=== PATIENT | female | born 1985 | race Caucasian/White ===

== ENCOUNTER 2018-09-29 05:54 | Inpatient (IN) ==
[~2018-09-29 05:54] MED LIST: CeFAZolin Premix DUPLEX 2,000 MG/50 ML BAG IVPB ONE; Famotidine 20 MG/2 ML VIAL IVP PRN; Metoclopramide 10 MG/2 ML VIAL IVP PRN; Naloxone 0.4 MG/ML INJ IVP PRN; Ringers Solution, Lactated 1,000 ML ONE
[2018-09-29] MEDS ORDERED: Ringers Solution, Lactated 1,000 ML IVC SCH (06:00)
[2018-09-29 06:35] LABS: Amphetamine Screen,Urine Negative ng/mL (Cutoff=1000); Barbiturate Screen,Urine Negative ng/mL (Cutoff=200)
[2018-09-29 06:37] LABS: Benzodiazepines Screen,Urine Negative ng/mL (Cutoff=300); Cannabinoid Screen,Urine Negative ng/mL (Cutoff = 50); Cocaine Screen,Urine Negative ng/mL (Cutoff= 300); Opiate Screen,Urine Negative ng/mL (Cutoff=300); Phencyclidine Screen,Urine Negative ng/mL (Cutoff=25)
[2018-09-29 06:39] LABS: Basophils # 0.1 K/mcL (0.0-0.2); Basophils % 0.4 %; Eosinophils # 0.1 K/mcL (0.0-0.6); Eosinophils % 0.6 %; Hematocrit 36.8 % (35.3-44.9); Hemoglobin 11.9 g/dL (11.5-15.4); Immature Granulocytes % 1.2 % (0-4); Lymphocytes # 1.7 K/mcL (0.6-4.6); Lymphocytes % 13.4 %; Mean Corpuscular HGB Conc 32.3 g/dL (31.6-35.5); Mean Corpuscular Hemoglobin 30.4 pg (28.0-33.3); Mean Corpuscular Volume 93.9 fL (83.0-100.0); Mean Platelet Volume 9.7 fL (9.4-12.4); Monocytes # 0.8 K/mcL (0.0-1.3); Monocytes % 5.9 %; Neutrophils # 10.2 K/mcL (1.6-8.9); Platelet Count 237 K/mcL (140-400); Red Blood Count 3.92 M/mcL (3.82-4.97); Red Cell Distribution Width 14.6 % (11.5-14.5); Segmented Neutrophils % 78.5 %
[2018-09-29] MEDS ORDERED: *HR* OxyCODONE/APAP 5/325 TABLET PO PRN (06:40)
[2018-09-29] MEDS ORDERED: Ibuprofen 400 MG TABLET PO PRN (06:40)
[2018-09-29] MEDS ORDERED: Ondansetron 4 MG/2 ML VIAL IVP PRN ×2 (06:40→10:41)
--- NOTE | 2018-09-29 06:41 | OB/GYN History & Physical ---
Date of Encounter: 09/29/18 Time of Encounter: 06:39 Assessment and Plan (1) 37 weeks gestation of Current visit: Yes Status: Acute (2) Refused attempt at vaginal after previous section Current visit: Yes Status: Acute History of Present Illness Chief complaint: justine godinez HPI: Ms. Medrano is a 33 year old female who presented to labor and delivery with spontaneous rupture membranes. Patient scheduled repeat section. Patient is doing well. Having no complaints of any kind today. Feeling well. Baby is very active. She has no drug allergies. She is currently on vitamins. She has no chronic medical conditions. Surgical history is significant for 2 previous sections and tonsillectomy. She has no history of abnormal Pap smears, STDs or pelvic infections. Socially she denies tobacco, alcohol, illicit drug use. Family history significant for lupus, kidney disease, heart disease and diabetes. Past Med Surg Social Fam HX - Past Medical History Medical history: no medical history Psychiatric history: no psych history - Past Surgical History Surgical History: Additional surgical history: c section x2 - Social History Smoking Status: Never smoker Smokeless Tobacco Status: No Alcohol use: none Drug use: none Obstetrical History - Pregnancies : 4 Para: 2 Term: 2 Livin Medications and Allergies Vitamin Tablet 1 tab PO DAILY 09/29/18 [History] Allergy/AdvReac Type Severity Reaction Status Date / Time No Known Allergies Allergy Verified 09/29/18 06:02 Review of System OB All systems PM: reviewed and no additional remarkable complaints except as stated Exam - Constitutional Constitutional: well developed, well nourished, no acute distress, average body habitus - HEENT HEENT: EOMI, PERRL, Normocephaly - Neck Neck exam: normal inspection - Lungs Respiratory exam: CTAB - Cardiovascular Cardiovascular exam: RRR - Abdomen Abdomen: Present: bowel sounds normal, gravid, non tender - Extremities Extremities exam: full ROM - Vagina Vagina: Present: normal moisture - Cervix Cervix: Present: absent Results All other labs normal.
--- NOTE | 2018-09-29 06:45 | Anesthesia Evaluation PreOp ---
Date of Encounter: 09/29/18 Time of Encounter: 06:45 - Past History Planned Operation: Repeat Cardiac History: Denies any Significant Hx Pulmonary History: Denies Any Significant HX ELECTROLYSIS ENGINEER History: Denies Any Significant HX Other Medical History: Denies Any Significant HX Anesthesia History: No Prior Anesthetic Complications, Past Anesthesia (C- Section) : Yes (37weeks 2days ) Alcohol Use: none Drug use: none Medications and Allergies Vitamin Tablet 1 tab PO DAILY 09/29/18 [History] Allergy/AdvReac Type Severity Reaction Status Date / Time No Known Allergies Allergy Verified 09/29/18 06:02 - Meds/Allergy Pre-op Review Medications Reviewed: Yes Allergies Reviewed: Yes Beta Blockers on Current Med List: No Anesthesia Results - Labs 09/29/18 06:00 Laboratory Tests 09/29/18 06:00 Hgb 11.9 Hct 36.8 Plt Count 237 Anesthesia Exam O2 Sat Height 1.63 m Weight 93.1 kg Height: 5'4 Weight: 93 kg NPO (# of Hours): MN Pain Scale: 0 - HEENT Pupil (Motor): Pupils equal, EOMI Mallampati: II Teeth: Normal Oral Opening: Greater than 3 - ELECTROLYSIS ENGINEER LOC: Oriented ELECTROLYSIS ENGINEER Motor: Normal RUE, Normal LUE, Normal RLE, Normal LLE, Normal Face ELECTROLYSIS ENGINEER Sensory: Normal: RUE, LUE, RLE, LLE, Face - Cardiac Rhythm: Regular Murmur: None JVD: No Carotid Bruit: No - Pulmonary Breath Sounds: bilateral Clear Respiratory Effort: Symmetrical Anesthesia Assess/Plan ASA Score: 2 Level of consciousness: Cooperative, Oriented Anesthetic Plan: Spinal Autologous Blood: No Monitoring Plan: Standard Monitors Recovery Plan: PACU (Discussed SAB, possible GA, agrees to proceed)
[2018-09-29] MEDS ORDERED: *HR* Morphine Sulfate/PF 10 MG/10 ML AMPUL ONE (06:51)
[2018-09-29] MEDS ORDERED: *HR* FentaNYL (PF) 100 MCG/2 ML VIAL ONE (06:51)
[2018-09-29] MEDS ORDERED: *HR* Phenylephrine 10 MG/ML VIAL ONE (06:52)
[2018-09-29] MEDS ORDERED: Ondansetron 4 MG/2 ML VIAL ONE (07:31)
--- NOTE | 2018-09-29 07:42 | Anesthesia Procedures ---
Date of Encounter: 09/29/18 Time of Encounter: 06:40 Procedures: Anesthesia - Epidural/Spinal Patient ID/Chart reviewed: Yes Patient examined: Yes OB Eval: Gestational age: 37 weeks OB Eval: : 5 OB Eval: Hx Para: 2 OB Eval: Contractions: Non-stressed pattern Consent Obtained: Yes Supplemental Oxygen: None/Room Air Site Prep: Aseptic Technique, Sterile prep and drape Patient position: upright Local Anesthetic: Lidocaine 1% Interspace Used: L4-L5 Loss of Resistance (CYRIL): No Blood: No CSF: Yes Paresthesia: No Spinal Needle Gauge: 24 Spinal Dose: 12 mg isobaric marcaine Procedure: Patient sitting, midline L4-5 Tolerated procedure well
[2018-09-29] MEDS ORDERED: Oxytocin 20 units/ LR 1000 mL 20 UNIT/1,000 ML BAG IVC ONE (08:47)
--- NOTE | 2018-09-29 09:07 | OB/GYN Procedure Note ---
Section - Date of procedure: 09/29/18 Preop diagnosis: desires repeat Post-op diagnosis: other (Uterine rupture) Procedure: repeat low transverse Surgeon: Fletcher Nettles Blood Loss: 400 Was there an environmental emergencies assistant present: Yes Dietitian Consultant: Sana Grossman Anesthesiologist: Vasile Jones Anesthesia Type: Spinal section complications: none, other (Uterine rupture noted upon entering cavity) Disposition: PACU - Infant (s) Infant A Delivery Date: 09/29/18 Delivery Time: Presentation: vertex Position: OA Route of delivery: other Gender: Male Viability: Viable Pounds: 7 Ounces: 7 Gram Weight: 3.37 kg at 1 minute: 9 at 5 minutes: 9 Shoulder Dystocia: not encountered Placenta: partial extraction Cord: 3 umbilical vessels - Narrative Narrative: After informed consent was obtained this patient is taken to the operating room with an IV in place. She was given spinal anesthesia. She was then prepped and draped in the usual sterile fashion. Once adequate analgesia was achieved a Pfannenstiel incision was made through patient's previous scar. Was carried sharply through the subtenons fatty tissue until the fascial layers reached. The fascia was then nicked in the midline incised bilaterally with scissors was then dissected vertically for adequate exposure. The rectus abdominis musculature was midline. There were dense adhesions underneath abdominal musculature. This was taken down via sharp and blunt dissection. As a begin taking down the adhesions of the abdominal cavity there was a large blue noted in the lower uterine segment. Using and taken to the tissue I realized that the uterus had ruptured through patient's previous scar. This was membranes coming through. There was approximately a 4 inch opening in the uterus. The bladder flap was developed below this. Bladder blade was placed over the bladder flap. At this time we widened the incision using bandage scissors. The 's head was then delivered without difficulty. The rest of the was delivered. The cried immediately upon delivery. The cord was clamped and cut. The infant was passed to NICU team in attendance. Cord bloods obtained. The placenta was delivered via uterine lavage and massage. The uterus itself was then delivered. Omentum had firmly adhered to the upper uterine wall. This was taken down via sharp and blunt dissection. The entire incision was examined. There was extension in the right lower margin. The incision was closed with 0 Vicryl suture in a running locking fashion second imbricating layer was utilized. Cauterization was utilized on the uterus were all the adhesions had been taken down. There was excellent hemostasis. At this point the uterus was replaced the pelvic cavity. The pelvic cavity was then rinsed thoroughly with sterile water 2. Seeing no bleeding, the procedure was terminated. Sponge, needle, and a count correct 2. The fascia was then closed with 0 Vicryl suture running nonlocking fashion. The suprafascial region was then rinsed thoroughly with sterile water 2 all bleeders cauterized the skin was then closed samara. Patient tolerated the procedure well. A blood loss was 400 mL. Patient delivered a male infant weight was 7 lbs. 7 oz. with Apgars of 9 at 1 minute and 9 at 5 minutes.
[2018-09-29] MEDS ORDERED: *HR* Nalbuphine 10 MG/ML AMPUL IV STA (09:34)
[2018-09-29] MEDS ORDERED: *HR* HYDROmorphone (PF) 1 MG/ML SYRINGE IVP STA (09:58)
[2018-09-29] MEDS ORDERED: Sennosides 8.6 MG TABLET PO PRN (10:41)
[2018-09-29] MEDS ORDERED: Metoclopramide 10 MG/2 ML VIAL IVP PRN (10:41)
[2018-09-29] MEDS ORDERED: Simethicone 80 MG TAB.CHEW PO PRN (10:41)
[2018-09-29] MEDS ORDERED: Oxytocin 20 units/ LR 1000 mL 20 UNIT/1,000 ML BAG IVC SCH (10:41)
[2018-09-29] MEDS ORDERED: Rho Immune Globulin 1,500 UNIT SYRINGE IM ONE ×2 (10:41→17:05)
[2018-09-29] MEDS: ceFAZolin 2,000 MG in 0.9 % Sodium Chloride 100 ML IVPB SCH ×2 (14:52→23:53)
[2018-09-29] MEDS: *HR* OxyCODONE/APAP 5/325 TABLET PO PRN ×2 (16:23→20:27)
[2018-09-29] MEDS: Ibuprofen 600 MG TABLET PO PRN (20:28)
[2018-09-30] MEDS: *HR* OxyCODONE/APAP 5/325 TABLET PO PRN ×4 (00:58→20:14)
[2018-09-30] MEDS: Ibuprofen 600 MG TABLET PO PRN ×4 (02:43→21:32)
[2018-09-30] MEDS: ceFAZolin 2,000 MG in 0.9 % Sodium Chloride 100 ML IVPB SCH (06:43)
[2018-09-30] MEDS: Prenatal Vit/FA 1 EACH TABLET PO SCH (07:48)
[2018-09-30 08:39] LABS: Basophils % 0.2 %; Eosinophils # 0.1 K/mcL (0.0-0.6); Eosinophils % 0.8 %; Hematocrit 33.1 % (35.3-44.9); Hemoglobin 10.8 g/dL (11.5-15.4); Immature Granulocytes % 0.7 % (0-4); Lymphocytes # 1.7 K/mcL (0.6-4.6); Lymphocytes % 15.3 %; Mean Corpuscular HGB Conc 32.6 g/dL (31.6-35.5); Mean Corpuscular Hemoglobin 30.7 pg (28.0-33.3); Mean Platelet Volume 9.6 fL (9.4-12.4); Monocytes % 8.8 %; Neutrophils # 8.4 K/mcL (1.6-8.9); Platelet Count 193 K/mcL (140-400); Red Blood Count 3.52 M/mcL (3.82-4.97); Red Cell Distribution Width 14.8 % (11.5-14.5); Segmented Neutrophils % 74.2 %; White Blood Count 11.3 K/mcL (4.3-11.1)
--- NOTE | 2018-09-30 09:34 | OB/GYN Progress Note ---
Date of Encounter: 09/30/18 Time of Encounter: 09:31 - Assessment and Plan (1) Status post section Current Visit: Yes Status: Acute Continue current management plan Anticipate discharge tomorrow. Subjective - Subjective Interval history: Pt states feels well, pain well managed, breast feeding, Patient reports: appetite normal, voiding normally, pain well controlled, ambulating normally [place]: doing well Objective - Vital Signs Latest vital signs: Vital Signs Temp Pulse Resp BP Pulse Ox 09/30/18 08:15 97.6 F 87 20 117/76 98 09/30/18 04:00 98.2 F 92 16 112/74 98 09/30/18 00:00 98.2 F 93 16 97/63 97 09/29/18 20:30 98.5 F 105 20 119/82 97 09/29/18 16:23 98.3 F 98 16 109/72 09/29/18 13:30 97.9 F 110 18 113/73 97 09/29/18 12:30 98.7 F 90 18 117/72 96 09/29/18 11:34 98.3 F 75 16 105/71 09/29/18 11:00 97.9 F 89 18 118/72 98 Intake and Output 09/29/18 09/30/18 09/30/18 23:59 07:59 15:59 Intake Total 350 / 1170 1100 / 1100 Output Total 1150 / 1150 550 / 550 Balance -800 / 20 550 / 550 Intake: IV Fluids 100 / 100 Ancef 2,000 MG In 0.9 % Sodium 100 / 100 Chloride 100 ML @ 200 mls/hr IVPB Q8H [facility] Rx#:[id number] Oral 350 / 1070 1000 / 1000 Output: Urine 300 / 300 550 / 550 Catheter 850 / 850 Other: Meal Dinner Percent of Meal Consumed 100% - Exam Lungs: bilateral: normal Chest: Normal S1, Normal S2 Extremities: Present: normal Abdomen: Present: soft Incision: Present: dressed Uterus: Present: firm (U) - Labs Labs: Laboratory Results - last 24 hr 09/29/18 09/30/18 08:31 08:22 WBC 11.3 H RBC 3.52 L Hgb 10.8 L Hct 33.1 L MCV 94.0 MCH 30.7 MCHC 32.6 RDW 14.8 H Plt Count 193 MPV 9.6 Immature Gran % 0.7 Seg Neutrophils % 74.2 Lymphocytes % 15.3 Monocytes % 8.8 Eosinophils % 0.8 Basophils % 0.2 Neutrophils # 8.4 Lymphocytes # 1.7 Monocytes # 1.0 Eosinophils # 0.1 Basophils # 0.0 Screen NEGATIVE Baby's Blood Type O RH POSITIVE Mother's Blood Type O RH NEGATIVE Rhogam Indicated YES Rhogam Req for Mother 1
[2018-10-01] MEDS: Ibuprofen 600 MG TABLET PO PRN (05:53)
[2018-10-01] MEDS ORDERED: Lanolin 7 G OINT...G. TP PRN (05:55)
[2018-10-01] MEDS: *HR* OxyCODONE/APAP 5/325 TABLET PO PRN (08:35)
[2018-10-01] MEDS: Prenatal Vit/FA 1 EACH TABLET PO SCH (08:35)
[2018-10-01 08:52] VITALS: BP 123/74
--- NOTE | 2018-10-01 09:18 | Discharge Summary ---
Date of Encounter: 10/01/18 Time of Encounter: 09:15 - Discharge Diagnosis (1) Breast feeding status of mother Priority: Secondary Status: Acute Comments: support prn (2) Status post section Priority: Primary Status: Acute Comments: Continue routine postop/ care discharge home today follow up in office in 1 week for staple removal Follow up with Dr. Barcenas in 2 weeks for incision check - Discharge Medications Prescriptions: New Ibuprofen [Motrin] 600 mg PO Q6HR PRN #60 tablet PRN Reason: Cramping OxyCODONE/APAP 5/325 [Percocet 5/325 MG] 1 each PO Q6HR PRN 5 Days #20 tablet PRN Reason: Moderate pain 4-6 Docusate [Colace] 100 mg PO BID capsule No Action Vitamin Tablet 1 tab PO DAILY Home Medications: Vitamin Tablet 1 tab PO DAILY 09/29/18 [History] Docusate [Colace] 100 mg PO BID capsule 10/01/18 [Rx] Ibuprofen [Motrin] 600 mg PO Q6HR PRN #60 tablet 10/01/18 [Rx] OxyCODONE/APAP 5/325 [Percocet 5/325 MG] 1 each PO Q6HR PRN 5 Days #20 tablet 10/01/18 [Rx] Allergies/Adverse Reactions: Allergy/AdvReac Type Severity Reaction Status Date / Time No Known Allergies Allergy Verified 09/29/18 06:02 Data Procedures and tests throughout hospitalization: Laboratory Tests 09/29/18 09/29/18 09/29/18 06:00 06:00 08:31 WBC 13.0 H RBC 3.92 Hgb 11.9 Hct 36.8 MCV 93.9 MCH 30.4 MCHC 32.3 RDW 14.6 H Plt Count 237 MPV 9.7 Immature Gran % 1.2 Seg Neutrophils % 78.5 Lymphocytes % 13.4 Monocytes % 5.9 Eosinophils % 0.6 Basophils % 0.4 Neutrophils # 10.2 H Lymphocytes # 1.7 Monocytes # 0.8 Eosinophils # 0.1 Basophils # 0.1 Urine Opiates Screen Negative Ur Buprenorphine Scrn Negative Ur Barbiturates Screen Negative Ur Phencyclidine Scrn Negative Ur Amphetamines Screen Negative U Benzodiazepines Scrn Negative Urine Cocaine Screen Negative U Marijuana (THC) Screen Negative Ur Drug Screen Interp See Below Screen NEGATIVE Baby's Blood Type O RH POSITIVE Mother's Blood Type O RH NEGATIVE Rhogam Indicated YES Rhogam Req for Mother 1 09/30/18 08:22 WBC 11.3 H RBC 3.52 L Hgb 10.8 L Hct 33.1 L MCV 94.0 MCH 30.7 MCHC 32.6 RDW 14.8 H Plt Count 193 MPV 9.6 Immature Gran % 0.7 Seg Neutrophils % 74.2 Lymphocytes % 15.3 Monocytes % 8.8 Eosinophils % 0.8 Basophils % 0.2 Neutrophils # 8.4 Lymphocytes # 1.7 Monocytes # 1.0 Eosinophils # 0.1 Basophils # 0.0 Urine Opiates Screen Ur Buprenorphine Scrn Ur Barbiturates Screen Ur Phencyclidine Scrn Ur Amphetamines Screen U Benzodiazepines Scrn Urine Cocaine Screen U Marijuana (THC) Screen Ur Drug Screen Interp Screen Baby's Blood Type Mother's Blood Type Rhogam Indicated Rhogam Req for Mother Date of admission: 09/29/18 05:54 Discharging clinician: Layne Stephens Anticipated date of discharge: 10/01/18 - Patient Status Disposition: Home, Self-Care Condition: Good Functional capacity at discharge: independent ambulation - Discharge Instructions Follow Up With: Fletcher Barcenas MD [Partnered Physician] - - Diet and Activity Activity: increase activity as tolerated Diet: regular diet Hospital Course Procedures: Oarrs report reviewed by FRANCO Arevalo prior to discharge Reason for admission: active labor Delivery: section (repeat with uterine rupture) Episiotomy: none Laceration: none Other procedures: none complications: none Discharge diagnosis: IUP at term delivered baby: male (breast feeding) Time Attestation: Total time spent providing and/or coordinating discharge services: Time Spent: Less than 30 minutes - VTE Documentation of Mechanical Device: Intermittent pneumatic compression device Exam - Constitutional Vitals: Temp Pulse Resp BP Pulse Ox 98.0 F 109 16 123/74 98 10/01/18 08:15 10/01/18 08:15 10/01/18 08:15 10/01/18 08:15 10/01/18 08:15 General appearance IM: A&O X 3, pleasant, answers questions appropriately - Respiratory Respiratory exam: Present: CTAB - Cardiovascular Cardiovascular exam IM: Present: RRR, +S1, +S2 - GI/Abdominal GI/Abdominal exam IM: normal bowel sounds Incision: normal, dry, intact, other (samara and binder) - Uterine Tone: Firm Uterus Position: 2 Fingers Below Umbilicus, Midline - Extremities Exam Extremities exam IM: Present: full ROM, normal capillary refill, normal inspection - Neurological Exam Neurological exam: alert, oriented X3, reflexes normal
== END 2018-10-01 09:51 | disposition home or self-care (01) | DRG 788 ==
LOC: 1NENULAB → 1NENUOBS 10:36
PROVIDERS: ADMIT Advanced Practice Midwife; ATTEND Advanced Practice Midwife